=== PATIENT | female | born 1950 | race Caucasian/White ===

== ENCOUNTER 2018-03-09 05:27 | Day surgery (SDC) | payer OTHER ==
[~2018-03-09] VITALS: Ht 175.3 cm; Wt 90.7 kg
--- NOTE | ~2018-03-09 | O ---
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 PROCEDURE: Excision of basal cell carcinoma of the right upper lid with frozen section, control of margins and myocutaneous flap repair of the defect. SURGEON: Andrew Patel MD SIGN MAINTENANCE: None. ANESTHESIA: MAC. COMPLICATIONS: None. INDICATIONS FOR SURGERY: This pleasant 67-year-old woman has a biopsy proven pigmented basal cell carcinoma in her right upper lid. She presents today for excision of the tumor with frozen sections and subsequent reconstruction of that defect. Informed consent was obtained to include but not limited to the potential risk for loss of vision, bleeding, infection, failure to improve the problem and the potential need for further surgery or treatment. DESCRIPTION OF PROCEDURE: The patient was taken to the operating room where 2% Xylocaine with epinephrine mixed with equal parts of 0.75% Marcaine with Wydase was administered transcutaneously to the right upper lid, the right infratemporal fossa, the right brow and the right medial canthus. The patient was subsequently prepped and draped in the usual sterile fashion. A fine tip skin marking pen was then used to outline the lesion including a considerable margin of uninvolved tissue. The incisions were then made with a Belia scissor and the deeper dissection accomplished with a high-temp cautery. The specimen was then oriented on a drawing for the waiting pathologist. She snap froze that tissue and found that the basal cell carcinoma was indeed completely confined within the specimen. Attention was then turned to repair the ensuing defect. The bed was sculpted with the monopolar cautery. The upper lid crease was reformed with interrupted 6-0 chromic sutures. The skin was then closed addressing the flap with multiple 6-0 plain gut sutures. The wound was then cleaned and dressed with erythromycin ophthalmic ointment. The patient subsequently transported to the recovery area [address] [address] OPERATIVE REPORT Name: PURA SIFUENTES [facility] Room #: DEP [facility]..#: [id number] Admission: 03/09/18 Attend Phys: Andrew Patel MD Discharge: 03/09/18 Date of : 50 Report #: [id number] having tolerated the procedures well with no anesthetic or operative complications being noted. <ELECTRONICALLY SIGNED> By: Andrew Patel MD 03/13/18 0619 0903 0932 Andrew Patel MD /nt
--- NOTE | ~2018-03-09 | PATH ---
[facility] [address] [place] [address] PATHOLOGY RPT PROCEDURE Name: PURA SIFUENTES Room #: DEP [facility] [place] M.R.#: [id number] Admission: 03/09/18 Date of : 50 Discharge: 03/09/18 Report #: [id number] Path Case #: [id number] LCA Accession Number: [id number] . 01 Material submitted: . BASAL CELL CARCINOMA, RIGHT UPPER LID . 01 Clinical history: . Pigmented basal cell carcinoma right upper eyelid . 02 Diagnosis: Skin, right upper eyelid, excision: - BASAL CELL CARCINOMA, PIGMENTED. - MARGINS OF RESECTION FREE OF MALIGNANCY. (IUV/db; 03/10/18) LBQ/03/10/2018 . 02 Electronically signed: . Kavita Zhang MD, Pathologist NPI- [id number] . 01 Gross description: . Specimen is received fresh from the OR labeled with the patient's name, and "basal cell carcinoma right upper eyelid", consists of a thin ellipse of skin measuring 4.2 x 1 x 0.3 cm. The specimen is oriented as lateral, superior, medial and inferior; these are assigned 12:00, 3:00, 6:00, and 9:00, respectively. There is a pigmented lesion present towards the medial aspect of the specimen. This lesion grossly appears about 1 mm away from both the superior and inferior closest margins grossly. The specimen is inked as follows: 12 to 3:00 to 6:00 is inked black, 6 to 9:00 is inked blue, and 9 to 12:00 is inked green. At this point, the specimen is serially sectioned and the lesion, as well as tips are submitted for frozen section as FSA1, subsequently submitted for permanent sections as A1. The three pieces not submitted for frozen section (with no gross evidence of lesion) are submitted for permanent sections only as A2. (IUV:demi; 03/09/2018) . FROZEN SECTION DIAGNOSIS: (Kavita Zhang M.D.) . FSA1. Right upper eyelid, excision: - Pigmented basal cell carcinoma. - Margins free of invasive carcinoma. . These findings are discussed with Dr. Andrew Patel in OR-6 at [facility] and a written report is placed in the patient's chart. (IUV:demi; 03/09/2018) [address] [address] PATHOLOGY RPT PROCEDURE Name: PURA SIFUENTES Room #: DEP [facility] [place] Laci#: [id number] Admission: 03/09/18 Date of : 50 Discharge: 03/09/18 Report #: [id number] Path Case #: [id number] . Frozen section performed at [facility], [address] [place] [address] , [place] [address]. /QMS . 02 Pathologist provided ICD-10: C44.1121 . 02 CPT . 190359, [id number] Specimen Comment: A courtesy copy of this report has been sent to Specimen Comment: [phone], . Specimen Comment: Report sent to / DR RIVERA Specimen Comment: A duplicate report has been generated due to demographic updates. Performed at: [id number] [facility] [address], [place] [id number] MD Kike Bryan MD Phone: [phone] Performed at: [address], [place], [place] [id number] MD Kavita Zhang MD Phone: [phone]
[~2018-03-09 05:27] MED LIST: EFFEXOR XR75 MG PO; ESTRADIOL 1 MG T1 M1 PO; GYNODIOL0.5 MG PO; VENLAFAXIN75 MG/1 T2 PO
[2018-03-09 08:00] VITALS: BP 136/81
== END 2018-03-09 09:35 | disposition home or self-care (01) ==
LOC: OR 05:27 → TBA 05:27 → OR 09:35
DX: C44.1121 Basal cell carcinoma of skin of right upper eyelid, including canthus (principal); F32.9 Major depressive disorder, single episode, unspecified; G47.33 Obstructive sleep apnea (adult) (pediatric); Z87.891 Personal history of nicotine dependence; Z85.828 Personal history of other malignant neoplasm of skin; Z90.710 Acquired absence of both cervix and uterus; Z98.890 Other specified postprocedural states; Z79.899 Other long term (current) drug therapy
CPT/HCPCS: 50010; 50101; 50386; 50398; 51636; 56531; 62110; 62850; 70005

== ENCOUNTER 2018-05-30 14:21 | Emergency (ER) | payer OTHER ==
[~2018-05-30] VITALS: Ht 172.7 cm; Wt 90.7 kg
[2018-05-30 14:48] LABS: ABSOLUTE NEUTROPHILS 3.2 thou/uL (1.4-8.2); BASOPHILS 0.8 % (0.0-2.0); EOSINOPHILS 0.1 % (0.0-3.0); HEMATOCRIT 42.6 % (37.0-47.0); HEMOGLOBIN 14.8 gm/dL (12.0-15.0); LYMPHOCYTES 32.9 % (24.0-44.0); MCH 29.8 pg (26.0-34.0); MCHC 34.8 g/dL (28.0-37.0); MCV 85.8 fL (80.0-100.0); MONOCYTES 9.4 % (1.0-8.0); PLATELET COUNT 183 thou/uL (150-400); POLYS 56.8 % (36.0-66.0); RBC 4.97 mil/uL (4.20-5.00); RDW 13.7 % (10.5-14.5); WBC 5.7 thou/uL (4.0-11.0)
[2018-05-30 14:55] LABS: ANION GAP 12 mmol/L (7-16); BUN 15 mg/dL (7-18); CALCIUM 9.6 mg/dL (8.5-10.1); CHLORIDE 102 mmol/L (98-107); CO2 25 mmol/L (21-32); CREATININE 0.9 mg/dL (0.6-1.0); GLUCOSE 112 mg/dL (74-106); SODIUM 139 mmol/L (136-145)
[2018-05-30 15:03] LABS: MAGNESIUM 2.1 mg/dL (1.8-2.4); SGOT 20 U/L (15-37); SGPT 28 U/L (30-65); TOTAL BILIRUBIN 0.4 mg/dL (<0.1-1.0); TROPONIN-I <0.06 ng/mL (<0.06)
[2018-05-30 15:52] LABS: AMP/METHAMP Negative (Negative); BARBITURATES Negative (Negative); BENZODIAZEPINES Negative (Negative); COCAINE Negative (Negative); METHADONE Negative (Negative); OPIATES Negative (Negative); PCP Negative (Negative)
[2018-05-30] MEDS ORDERED: [UNRECOGNIZED DRUG - REMARK] (16:11)
[2018-05-30] MEDS ORDERED: TOPROL XL25 MG PO (16:27)
--- NOTE | 2018-05-30 17:04 | EKG ---
[place] [address] 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 : 1950 Requested By: Neto Cam Order Number: [id number] MD: Juan Manuel Rodríguez Measurements Intervals [place] Rate: 95 P: 77 [place]: 145 QRS: 61 QRSD: 105 T: 61 QT: 361 QTc: 454 Interpretive Statements Sinus rhythm Probable left atrial enlargement Minimal ST depression, diffuse leads Compared to ECG 11/20/2014 17:39:42 No significant changes Electronically Signed On 05-30-2018 17:04:39 THREE DIMENSIONAL ART INSTRUCTOR by Juan Manuel oRdríguez [email or web address] ��������������������������������������������� <ELECTRONICALLY SIGNED> ���������������������������������������� By: Juan Manuel Rodríguez MD ��������������������������������������������� 05/30/18 1704 D: 02/1442 144 Juan Manuel Rodríguez MD /MARY ANN
--- NOTE | 2018-05-30 17:04 | EKG ---
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 : 1950 Requested By: Neto Cam Order Number: [id number] MD: Juan Manuel Rodríguez Measurements Intervals [place] Rate: 174 P: [place]: QRS: 69 QRSD: 99 T: 245 QT: 255 QTc: 434 Interpretive Statements SVT Electronically Signed On 05-30-2018 17:04:18 HANGAR ATTENDANT by Juan Manuel Rodríguez [email or web address] ��������������������������������������������� <ELECTRONICALLY SIGNED> ���������������������������������������� By: Juan Manuel oRdríguez MD ��������������������������������������������� 05/30/18 1704 1427 1427 Juan Manuel Rodríguez MD /EPI
[2018-05-30 17:40] VITALS: BP 145/96
== END 2018-05-30 17:40 | disposition home or self-care (01) ==
LOC: ER 14:21
PROVIDERS: Emergency Medicine
DX: I48.2 Chronic atrial fibrillation (principal); F32.9 Major depressive disorder, single episode, unspecified; G47.30 Sleep apnea, unspecified; E78.5 Hyperlipidemia, unspecified; Z90.710 Acquired absence of both cervix and uterus; Z85.828 Personal history of other malignant neoplasm of skin; Z79.899 Other long term (current) drug therapy

== ENCOUNTER → 2018-05-31 | Outpatient (CLI) | payer OTHER ==
[~2018-05-31] MED LIST changes: +TOPROL XL25 MG PO; +[UNRECOGNIZED DRUG - REMARK]
--- NOTE | 2018-05-31 14:15 | 2DMMODE ---
[facility] [address] [place] [address] 2 D/M-MODE ECHOCARDIOGRAM Name: PURA SIFUENTES ARNULFO [facility]: [facility] [id number] ������������� Admission: 05/31/18 ������������� Attend Phys: Christiano Parish Discharge: ��� ������������� ��� Date of : 50 Date of Service: 05/31/18 1415 �� Report #: [id number] �������� ��������������������������������������������[id number] THIS REPORT FOR: //name// APPROVED REPORT Study performed: 05/31/2018 13:22:38 EXAM: Comprehensive 2D, Doppler, and color-flow Echocardiogram Patient Location: Out-Patient Room #: Echo lab 2 Status: routine BSA: 2.04 HR: 62 bpm BP: 144/86 mmHg Rhythm: NSR Other Information Study Quality: Adequate Indications Abnormal ECG Chest Pain SVT 2D Dimensions RVDd: 32.56 mm IVSd: 9.02 (7-11mm) LVOT Diam: 20.76 (18-24mm) LVDd: 50.85 mm PWd: 10.46 (7-11mm) Ascending Ao: 31.49 (22-36mm) LVDs: 30.48 (25-40mm) Aortic Root: 30.66 mm IVC: 12.00 mm Volumes Left Atrial Volume (Systole) Single Plane 4CH: 29.05 mL Single Plane 2CH: 38.87 mL LA ESV Index: 19.00 mL/m2 Aortic Valve AoV Peak Declan.: 1.04 m/s AO Peak Gr.: 4.31 mmHg LVOT Max P.39 mmHg LVOT Max V: 0.77 m/s POORNIMA Vmax: 2.52 cm2 Mitral Valve E/A Ratio: 0.8 [facility] [address] [address] 2 D/M-MODE ECHOCARDIOGRAM Name: PURA SIFUENTES Room #: REG Laci#: [id number] ������������� Admission: 05/31/18 ������������� Attend Phys: Christiano Parish Discharge: ��� ������������� ��� Date of : 50 Date of Service: 05/31/18 1415 �� Report #: [id number] �������� ��������������������������������������������[id number] MV Decel. Time: 209.27 ms MV E Max Declan.: 0.81 m/s MV A Declan.: 0.99 m/s MV PHT: 60.69 ms IVRT: 138.41 ms Pulmonary Valve PV Peak Declan.: 0.85 m/s PV Peak Gr.: 2.90 mmHg Pulmonary Vein P Vein S: 0.53 m/s P Vein A: 0.31 m/s P Vein D: 0.44 m/s P Vein A Dur.: 115.3 msec P Vein S/D Ratio: 1.20 Tricuspid Valve TR Peak Declan.: 2.40 m/s TR Peak Gr.: 23.02 mmHg PA Pressure: 28.00 mmHg Left Ventricle The left ventricle is normal size. There is normal LV segmental wall motion. There is normal left ventricular wall thickness. Left ventricular systolic function is normal. The left ventricular ejection fraction is within the normal range. LVEF is 55-60%. Grade I - abnormal relaxation pattern. Right Ventricle The right ventricle is normal size. The right ventricular systolic function is normal. Atria The left atrium size is normal. The right atrium size is normal. Aortic Valve The aortic valve is normal in structure. No aortic regurgitation is present. There is no aortic valvular stenosis. Mitral Valve The mitral valve is normal in structure. There is no mitral valve regurgitation noted. No evidence of mitral valve stenosis. Tricuspid Valve The tricuspid valve is normal in structure. There is trace tricuspid regurgitation. Estimated PAP 28 mmHg. There is no pulmonary hypertension. [address] [address] 2 D/M-MODE ECHOCARDIOGRAM Name: PURA SIFUENTES ARNULFO Room #: REG [facility] Aguero#: [id number] ������������� Admission: 05/31/18 ������������� Attend Phys: Christiano Parish Discharge: ��� ������������� ��� Date of : 50 Date of Service: 05/31/18 1415 �� Report #: [id number] �������� ��������������������������������������������[id number] Pulmonic Valve The pulmonary valve is normal in structure. There is no pulmonic valvular regurgitation. Great Vessels The aortic root is normal in size. IVC is normal in size and collapses >50% with inspiration. Pericardium There is no pericardial effusion. <Conclusion> The left ventricle is normal size. LVEF is 55-60%. The aortic valve is normal in structure. The mitral valve is normal in structure. The tricuspid valve is normal in structure. There is trace tricuspid regurgitation. Estimated PAP 28 mmHg. There is no pulmonary hypertension. The pulmonary valve is normal in structure. The aortic root is normal in size. There is no pericardial effusion. ��������������������������������������������� <ELECTRONICALLY SIGNED> ���������������������������������������� By: Christiano Martin MD ��������������������������������������������� 05/31/18 1415 1415 1415 Christiano Martin MD /INF
== END ==
LOC: CV 12:52
DX: I10 Essential (primary) hypertension (principal); I47.1 Supraventricular tachycardia

== ENCOUNTER 2018-06-05 10:52 | Inpatient (IN) | payer OTHER ==
[~2018-06-05] VITALS: Ht 172.7 cm; Wt 87.5 kg
[2018-06-05 10:53] VITALS: BP 147/99
[2018-06-05] MEDS ORDERED: TOPROL XL25 MG PO (11:02)
[2018-06-05] MEDS ORDERED: PRADAXA150 MG PO (11:03)
[2018-06-05 11:34] LABS: ABSOLUTE NEUTROPHILS 2.7 thou/uL (1.4-8.2); HEMATOCRIT 40.1 % (37.0-47.0); HEMOGLOBIN 13.9 gm/dL (12.0-15.0); LYMPHOCYTES 24.2 % (24.0-44.0); MCH 29.7 pg (26.0-34.0); MCHC 34.6 g/dL (28.0-37.0); MCV 85.7 fL (80.0-100.0); MONOCYTES 7.4 % (1.0-8.0); PLATELET COUNT 178 thou/uL (150-400); POLYS 67.4 % (36.0-66.0); RBC 4.68 mil/uL (4.20-5.00); RDW 13.7 % (10.5-14.5); WBC 4.1 thou/uL (4.0-11.0)
[2018-06-05 11:37] LABS: ANION GAP 11 mmol/L (7-16); BUN 18 mg/dL (7-18); CALCIUM 9.2 mg/dL (8.5-10.1); CHLORIDE 104 mmol/L (98-107); CO2 23 mmol/L (21-32); CREATININE 0.8 mg/dL (0.6-1.0); GLUCOSE 115 mg/dL (74-106); POTASSIUM 4.4 mmol/L (3.5-5.1); SODIUM 138 mmol/L (136-145)
[2018-06-05 11:45] LABS: TROPONIN-I <0.06 ng/mL (<0.06)
--- NOTE | 2018-06-05 14:17 | NUR ---
PROVIDER AT BEDSIDE GIVING PT AN UPDATE.
[2018-06-05] MEDS ORDERED: D3 DOTS2000 UNIT PO (14:53)
--- NOTE | 2018-06-05 15:02 | EKG ---
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 : 1950 Requested By: Christina Joseph Order Number: [id number] MD: Juan Manuel Rodríguez Measurements Intervals [place] Rate: 56 P: 73 [place]: 147 QRS: 56 QRSD: 108 T: 60 QT: 448 QTc: 433 Interpretive Statements Sinus rhythm Compared to ECG 05/30/2018 14:43:03 ST (T wave) deviation no longer present Electronically Signed On 06-05-2018 15:02:35 DEMOLITION SPECIALIST by Juan Manuel Rodríguez [email or web address] ��������������������������������������������� <ELECTRONICALLY SIGNED> ���������������������������������������� By: Juan Manuel Rodríguez MD ��������������������������������������������� 06/05/18 1502 1056 1056 Juan Manuel Rodríguez MD /MARY ANN
[2018-06-05 15:28] VITALS: BP 126/62
[2018-06-05 16:30] VITALS: BP 160/83
[2018-06-05] MEDS ORDERED: FOSAMAX 70 MG T70 MG PO (17:14)
--- NOTE | 2018-06-05 17:50 | NUR ---
PT ARRIVED TO THE UNIT AT APPROX 1625 BY ER STAFF WITH BELONGINGS AND MEDICATIONS. PT ALERT AND ORIENTED, C/O 2/10 CP, NO S/SX OF RESP OR CARDIAC DISTRESS NOTED. PT UP AD IRENA, TELE PUT ON, ADMIT STRIP PRINTED AND DOCUMENTED. MEDICATIONS BROUGHT DOWN TO PHARMACY. WILL ACKNOWLEDGE AND IMPLEMENT ORDERS. WILL CONTINUE TO MONITOR AND FOLLOW POC.
--- NOTE | 2018-06-05 18:25 | NUR ---
PT CONTINUES TO BE ALERT AND ORIENTED, CHEST PAIN CONSTANT DULL, RATING AT 2/10. PT UP ADLIB, DENIES CONCERNS AT THIS TIME. WILL CONTINUE TO MONITOR AND FOLLOW POC.
[2018-06-05 20:12] VITALS: BP 131/72
[2018-06-06] VITALS (7 sets, daily range): BP systolic 103–142; BP diastolic 59–91
--- NOTE | 2018-06-06 03:18 | NUR ---
ASSESSMENT DOCUMENTED.PT HAS BEEN RESTING IN NAD.A/OX4.ADMITTED WITH CHEST PAIN.PT DENIES CHEST PAIN OR ANY CONCERNS THIS SHIFT.NPO AFTER MIDNOC FOR STRESS TEST TODAY.PT AWARE AND AGREES TO POC FOR TODAY.SR ON MONITOR.VSS.PT DENIES ANY NEEDS AT THIS TIME.
[2018-06-06 04:27] LABS: HEMATOCRIT 41.3 % (37.0-47.0); HEMOGLOBIN 14.2 gm/dL (12.0-15.0); MCH 29.7 pg (26.0-34.0); MCHC 34.5 g/dL (28.0-37.0); MCV 86.3 fL (80.0-100.0); RBC 4.79 mil/uL (4.20-5.00); RDW 13.7 % (10.5-14.5); WBC 4.1 thou/uL (4.0-11.0)
[2018-06-06 04:38] LABS: ANION GAP 11 mmol/L (7-16); BUN 19 mg/dL (7-18); CALCIUM 9.5 mg/dL (8.5-10.1); CHLORIDE 104 mmol/L (98-107); CO2 26 mmol/L (21-32); CREATININE 0.9 mg/dL (0.6-1.0); GLUCOSE 111 mg/dL (74-106); POTASSIUM 4.2 mmol/L (3.5-5.1); SODIUM 141 mmol/L (136-145); TROPONIN-I <0.06 ng/mL (<0.06)
--- NOTE | 2018-06-06 05:08 | NUR ---
PT REPORTED SUDDEN CRUSHING PAIN TO LEFT CHEST OVER BREAST RATING PAIN HIGH 10/10 THAT LAST FOR LESS THAN 2MINUTES AND DISAPPEAR W/O INTERVENTIONS.THE FIRST EPISODE PT WAS LAYING IN THE BED RESTING WHILE IT OCCURED W/O NO OTHER COMPLAINS,THE SECOND EPISODE OCCURED WHILE SHE WAS ON THE PHONE WITH THE SON,PT STATES SECOND EPISODE WAS TOO SEVERE ACCOMPANIED BY BEING DIAPHORETIC.VSS WNL,O2 SATS 98%.PT DENIES SOA WITH THESE EPISODES.EKG COMPLETED.DR CLIFFORD NOTIFIED,INSTRUCTED TO CONTINUE WITH EKG,DRAW TROPONIN.PT SCHEDULED FOR STRESS TEST THIS AM.WILL CONT TO MONITOR PER POC.
--- NOTE | 2018-06-06 08:13 | EKG ---
[address] [address] ELECTROCARDIOGRAM REPORT Name: BEARPURA Room #: 210-P ADM IN M.R.#: [id number] ������������������ Admission: 06/05/18 ������������������ Attend Phys: Julio Cesar Collazo MD Discharge: ������������������ Date of : 50 Report #: [id number] ����������������������������������������������������������������� [id number] THIS REPORT FOR: //name// [facility] Test Date: 2018-06-06 Test Time: 05:00:44 Pat Name: PURA SIFUENTES Department: Room: 210 P Gender: F Regional Account Executive: melissa : 1950 Requested By: Raheem Francisco Order Number: [id number] MD: Jah Nicholson Measurements Intervals [place] Rate: 59 P: 87 [place]: 153 QRS: 56 QRSD: 103 T: 81 QT: 462 QTc: 458 Interpretive Statements Sinus rhythm No significant abnormality Compared to ECG 06/05/2018 10:56:24 No significant changes Electronically Signed On 06-06-2018 8:13:13 CONCESSION STAND ATTENDANT by Jah Nicholson [email or web address] ��������������������������������������������� <ELECTRONICALLY SIGNED> ���������������������������������������� By: Jah Nicholson MD, [facility] ��������������������������������������������� 06/06/18 0813 D: 030 Jah Nicholson MD, FACC /EPI
--- NOTE | 2018-06-06 18:36 | NUR ---
ASSUMED CARE OF PT AT SHIFT CHANGE. ASSESSMENT CHARTED. MEDS GIVEN PER JUN. PT ALERT AND ORIENTED, VSS, C/O CHEST PAIN THIS AM, EKG, TROP NEGATIVE, BP ELEVATED, CARDS NOTIFIED, NO NEW ORDERS. CHEST PAIN RESOLVED WITHIN MINUTES, NO FURTHER C/O CHEST PAIN. PT HAD STRESS TEST THIS AM. PHYSICIAN SPOKE WITH PT AFTER PROCEDURE, PLAN IS FOR PT TO HAVE CATH IN AM. PT AND FAMILY UPDATED. O2 SATS WNL ON ROOM AIR, NO S/SX OF DISTRESS NOTED. DENIES CONCERNS AT THIS TIME. WILL CONTINUE TO MONITOR AND FOLLOW POC.
[2018-06-07] VITALS (12 sets, daily range): BP systolic 123–163; BP diastolic 60–108
--- NOTE | 2018-06-07 05:27 | NUR ---
ASSUMED PT CARE AT 1900. VSS. PT A&0X4. ASSESSMENTS AND MEDS GIVEN ARE DOCUMENTED, PT RESTED WELL FOR MOST OF THE NIGHT. PRE PROCEDURE NS WAS STARTED AT MIDNIGHT AT 91ML/HR PER ORDER OF 1ML/KG/HR. PT STATED THAT HER CHEST PAIN CAME BACK AROUND 0430 THIS AM AND ONLY LASTED ONLY A FEW MINUTES AFTER WHICH IT SELF RESOLVED. OTHERWISE, NO FURTHER COMPLAINTS FROM PATIENT THROUGH THE NIGHT, CONSENT ALREADY SIGNED FOR CATH PROCEDURE THIS AFTERNOON AND IN THE CHART. WILL CONTINUE TO MONITOR PER POC.
[2018-06-07 08:46] LABS: CHOLESTEROL 231 mg/dL (<200); HDL CHOLESTEROL 48 mg/dL (>40); LDL CHOLESTEROL 152 mg/dL (<100); TC:HDL 4.8 Ratio (Not establshd); TRIGLYCERIDE 158 mg/dL (<150); VLDL 32 mg/dL (<40)
--- NOTE | 2018-06-07 17:39 | NUR ---
PATIENT ALERT AND ORIENTED. VSS. DENIED HAVING PAIN OR DISCOMFORT THIS AM. HAD CARDIAC CATH. RIGHT GROIN INCISION C/D/I. NO HEMATOMA NOTED. ON BED REST FOR 3HOURS. WILL CONTINUE TO MONITOR.
[2018-06-08] VITALS: BP 123/60
--- NOTE | 2018-06-08 03:56 | NUR ---
AT SHIFT CHANGE; PT AOX4; ON BED REST UNTIL 1999 PM; DRESSING DRY; INTACT; NO HEMATOMA; NO C/O PAIN AT TOUCH; VS WNL; HS MEDICATION GIVEN; EXPLAINED HOW ASSESSMENT ARE PERFORMED Q4H DURING THE NIGHT; ST. UNDERSTANDING; AROUND 2330 PT. CALLED FOR IV PUMP BEEPING; IV FLUIDS STOPPED; IV FLUSHED; R. GROING ASSESSMENT DRY; INTACT; NO HEMATOMA; NO C/O PAIN; PULSES 2/2; AROUND MIDNIGHT PT. CALLED DUE TO IV PUMP BEEPING; PER NURSE REPORT (KEV); PT. UPSET DUE TO PUMP BEEPING; REQUESTED IV PUMP TO BE TAKEN OUT FROM ROOM; DURING NURSE RE-ASSESSMENT PT. UPSET BECAUSE IV PUMP WAS NOT TAKEN OUT FROM ROOM; EXPLAINED THE NEED TO KEEP IV PUMPS IN ROOM; PT. TURN ON HER L. SIDE; PT'S BACK TOWARD NURSE; ST. "OK"; NURSE LEFT ROOM; VS AND 0400 ASSESSMENT WILL BE TAKEN TOGETHER; ASSESSMENT CHARGE; FOLLOWING POC; WILL PASS ON REPORT.
[2018-06-08 04:35] VITALS: BP 115/68
[2018-06-08] MEDS ORDERED: IMDUR 30 MG TAB30 M1 PO (07:41)
[2018-06-08] MEDS ORDERED: ATORVASTATIN CA40 MG PO (08:05)
[2018-06-08 08:07] VITALS: BP 142/83
[2018-06-08 10:54] VITALS: BP 142/83
--- NOTE | 2018-06-08 12:27 | NUR ---
ASSESSMENT DOCUMENTED. PT ALERT AND ORIENTED. VSS. DENIED HAVING PAIN OR DUSCOMFORT. NO HEMATOMA NOTED ON RIGHT GROIN INCISION. DRESSING C/D/I. SEEN BY DR MCKEON AND DR. CLIFFORD. ORDERS GIVEN TO DISCHARGE PT TO HOME. DISCHARGE INSTRUCTIONS GIVEN TO PT. PT VERBERLIZE UNDERSTANDING. PT LEFT THE FACILITY ACCOMPANIED BY THE DAUGHTER.
--- NOTE | 2018-06-09 17:58 | CATHLAB ---
[facility] [address] [email or web address] [address] INVASIVE PROCEDURE REPORT Name: PURA SIFUENTES Room #: 210-P DIS IN M.R.#: [id number] ������������� Admission: 06/05/18 ������������� Attend Phys: Julio Cesar Collazo MD Discharge: ��� 06/08/18 ������������� ��� Date of : 50 Date of Service: 06/09/18 1757 �� Report #: [id number] �������� ��������������������������������������������[id number] THIS REPORT FOR: //name// APPROVED REPORT Study performed: 06/07/2018 16:06:14 Patient Details Patient Status: In-Patient Room #: The patient is a 67 year-old female Event Personnel Tarah Khoury RTR, FRONT END WEB DESIGNER Monitor, Magno Barton RN, Ragini Shankar RT(R)() Mario Cruz Francisco Bilingual Teacher Aide Procedures Performed Art Access - R femoral artery* Left Heart Cath w/or w/o Coronaries [id number] [facility] [address] Initial Mod Sed Same Phys/QHP Gr5y [id number] Hemostasis with Manual pressure, supervision of conscious sedation Indication Positive stress test, Chest pain Procedure Narrative The Right Groin^ was infiltrated with 1% Lidocaine subcutaneous anesthesia. A PINNACLE 4FR Sheath #[id number] sheath was inserted into the RFA^. Coronary angiography was performed using coronary diagnostic catheters. The right coronary system was accessed and visualized with a JR4 catheter. The left coronary system was accessed and visualized with a JL4 catheter. Left ventricular/Aortic Valve gradient assessed via catheter pullback. Hemostasis was obtained with manual pressure following sheath removal without any complications. The patient tolerated the procedure well and there were no complications associated with the procedure. There was no hematoma. Intraoperative Conscious Sedation Sedation start time: 1604 Case end Time: 1628 Versed 2 mg Fluoro Time: 1.50 minutes Dose: DAP 2730.10 cGycm2 414 mGy [facility] [place] [address] INVASIVE PROCEDURE REPORT Name: PURA SIFUENTES [facility] Room #: 210-P [facility] IN M..#: [id number] ������������� Admission: 06/05/18 ������������� Attend Phys: Julio Cesar Collazo MD Discharge: ��� 06/08/18 ������������� ��� Date of : 50 Date of Service: 06/09/18 1757 �� Report #: [id number] �������� ��������������������������������������������[id number] Contrast Type and Amount: Omnipaque 35 ml Coronary Angiography The patient's coronary anatomy is right dominant. Diagnostic Cath Left Main Normal origin and caliber bifurcates left anterior descending left circumflex. Free of high-grade disease. LAD Small caliber type II vessel which proximally has a concentric narrowing of approximately 50% which begins almost at its origin. The origin of this vessel is curved the lesion being at the main midpoint of the bend in the vessel itself.. The vessel then continues on reconstitutes itself courses in the anterior interventricular sulcus giving rise to septal and diagonal branches free of high-grade disease. Diagonal 1 Small-caliber Vessel without significant high-grade lesions present Circumflex Large-caliber vessel coursing in the feet groove a short distance and arising a large lateral wall marginal branch. This is a terminus of the circumflex as it was on the lateral aspect of the left ventricle free of significant stenotic lesions. OM1 First marginal branches the primary vessel and the left circumflex. It is free of significant stenotic lesions as described above Right Coronary Caliber vessel normal origin which courses in the AV groove giving rise to 2 RV marginal branches. These are small in caliber and free of high-grade disease. The RCA proper then continues to the crux of the heart regular circumflex posterior descending artery which is moderate in size tortuous in its course towards the apex but no significant high-grade lesions are noted. The circulation consists of posterior wall branches without decrease flow R PDA Moderate caliber vessel without significant high-grade stenosis noted. It is tortuous in its course in the posterior interventricular sulcus as it extends towards the apex. Ramus Small-caliber vessel arising from the left main or proximal circumflex. It is free of high-grade disease and measures less than 1 mm in diameter. Left Ventriculography Left Ventriculography was not performed. Hemodynamics The aortic pressure is 136/70 mmHg with a mean of 95 mmHg. The left ventricular pressure is 154/10 mmHg with a mean of mmHg. The left ventricular end diastolic pressure is 29 mmHg. [facility] [address] [place] [address] INVASIVE PROCEDURE REPORT Name: PURA SIFUENTES Room #: 210-P [facility] IN M.R.#: [id number] ������������� Admission: 06/05/18 ������������� Attend Phys: Julio Cesar Collazo MD Discharge: ��� 06/08/18 ������������� ��� Date of : 50 Date of Service: 03/11/20 1756 �� Report #: [id number] �������� ��������������������������������������������[id number] Conclusion 1. Coronary disease, moderate, single vessel consisting of the proximal LAD. 2. Normal hemodynamics with elevated left ventricular end-diastolic pressures Recommendations Cardiac Risk Reduction Program Medical Therapy ��������������������������������������������� <ELECTRONICALLY SIGNED> ���������������������������������������� By: Christiano Martin MD ��������������������������������������������� 06/09/181756 56 56 Christiano Martin MD /INF
== END 2018-06-08 12:30 | disposition home or self-care (01) | DRG 286 ==
LOC: ER 10:52 → EROBS 14:22 → 2N 14:22 → ENTRNSPT 06-08 11:26 → EDTRNSPTSTS 06-08 11:39 → 2N 06-08 12:30
PROVIDERS: Emergency Medicine; Nurse Practitioner Gerontology; ADMIT Hospitalist
DX: I25.110 Atherosclerotic heart disease of native coronary artery with unstable angina pectoris (principal); I50.33 Acute on chronic diastolic (congestive) heart failure; F32.9 Major depressive disorder, single episode, unspecified; G47.33 Obstructive sleep apnea (adult) (pediatric); I48.91 Unspecified atrial fibrillation; E03.9 Hypothyroidism, unspecified; I10 Essential (primary) hypertension; Z79.82 Long term (current) use of aspirin; Z79.899 Other long term (current) drug therapy; Z90.710 Acquired absence of both cervix and uterus; Z87.891 Personal history of nicotine dependence
CPT/HCPCS: 10081

== ENCOUNTER → 2018-07-24 | Outpatient (CLI) | payer OTHER ==
[~2018-07-24] VITALS: Ht 172.7 cm; Wt 86.2 kg
[~2018-07-24] MED LIST changes: +ATORVASTATIN CA40 MG PO; +COZAAR 25 MG TA25 M2 PO; +D3 DOTS2000 UNIT PO; +FOSAMAX 70 MG T70 MG PO; +IMDUR 30 MG TAB30 M1 PO; +IMDUR 60 MG TAB60 M1 PO; +PRADAXA150 MG PO
[2018-07-24 07:23] LABS: ABSOLUTE NEUTROPHILS 3.2 thou/uL (1.4-8.2); BASOPHILS 0.7 % (0.0-2.0); EOSINOPHILS 0.1 % (0.0-3.0); HEMATOCRIT 38.5 % (37.0-47.0); HEMOGLOBIN 13.1 gm/dL (12.0-15.0); LYMPHOCYTES 26.6 % (24.0-44.0); MCH 29.7 pg (26.0-34.0); MCV 87.4 fL (80.0-100.0); MONOCYTES 9.2 % (1.0-8.0); PLATELET COUNT 202 thou/uL (150-400); POLYS 63.4 % (36.0-66.0); RBC 4.41 mil/uL (4.20-5.00); RDW 14.3 % (10.5-14.5); WBC 5.1 thou/uL (4.0-11.0)
[2018-07-24 07:28] LABS: CALCIUM 9.2 mg/dL (8.5-10.1); CREATININE 0.9 mg/dL (0.6-1.0)
[2018-07-24 07:34] LABS: ALBUMIN 3.9 g/dL (3.4-5.0); APTT 27.1 Seconds (24.5-32.8); PROTIME 10.3 Seconds (9.3-11.4); TOTAL BILIRUBIN 0.5 mg/dL (<0.1-1.0); TOTAL PROTEIN 7.4 g/dL (6.4-8.2)
[2018-07-24 07:35] VITALS: BP 106/58
--- NOTE | 2018-07-31 14:33 | P ---
[facility] [place] [address] [place] [address] PROCEDURE REPORT Name: BEARPURA ANN Room #: REG AMEYA Laci#: [id number] Admission: 07/24/18 ������������������ Attend Phys: Juan Manuel Rodríguez MD Discharge: ������������������ Date of : 50 Report #: [id number] THIS REPORT FOR: //name// CC: Katy Alvarado Lammoglia Juan Manuel Rodríguez PREOPERATIVE DIAGNOSIS: Supraventricular tachycardia. 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 PROCEDURES PERFORMED: 1. SVT ablation, CPT code 84038. 2. EP with left atrial pacing and recording, CPT code 30551. 3. Programmed stimulation and pacing after IV drug infusion, CPT code 59864. 4. 3D mapping, CPT code 61588. HISTORY: The patient is a 67-year-old recently in the Emergency Room with SVT that was adenosine sensitive. 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 ANESTHESIA: The patient underwent MAC anesthesia with no anesthesia related complications. DESCRIPTION OF PROCEDURE: The patient underwent informed consent. We discussed the details of the procedure, which include but not limited to bleeding, vascular damage, stroke, VT as well as damage to the [place] conduction system requiring permanent pacemaker. She understood these risks and is willing to proceed. Of note, she does report that she inadvertently took her usual dose of beta onel yesterday. She forgot to hold this as we had directed. As such, the patient was brought to the EP laboratory in a fasting and unsedated state and prepped and draped in a sterile fashion. I then injected lidocaine to the bilateral groins, obtained access to the bilateral femoral veins placing an 8 and 6-Nepalese short sheath in the right femoral vein and a 7 and 6-Nepalese short sheath in the left femoral vein using the modified Seldinger technique. Next, under fluoroscopy, three quadripolar catheters were placed at the HRA, His, and RV positions and a decapolar catheter was easily placed in the coronary sinus. A basic EP study was performed. At baseline, the patient was in sinus rhythm with sinus cycle length of 1075 milliseconds, [place] interval 165 milliseconds, QRS duration 90 milliseconds, QT interval 435 milliseconds, AH interval 75 milliseconds and HV interval 47 milliseconds. With atrial burst pacing, AV block was noted at 360 milliseconds. With single atrial extrastimuli, there was evidence of a slow pathway. The fast pathway ERP was noted at 380 milliseconds with a [address] cycle length with a 100 millisecond jump. [facility] [address] [place] [place] [address] PROCEDURE REPORT Name: PURA SIFUENTES Room #: REG [facility]#: [id number] Admission: 07/24/18 ������������������ Attend Phys: Juan Manuel Rodríguez MD Discharge: ������������������ Date of : 50 Report #: [id number] Next atrial extrastimuli were continued and atrial ERP was noted at 310 milliseconds with [address] cycle length. Next, ventricular pacing was performed and VA block was noted at 620 milliseconds, VA ERP was noted at 450 milliseconds at [address] cycle length. VA conduction was both midline and decremental. Next, isoproterenol was initiated at 2 mcg per minute and AV block was noted at 300 milliseconds, VA block was noted at 330 milliseconds. Single and double atrial extrastimuli were delivered and no SVT could be induced. There was still evidence of the presence of the slow pathway. Isoproterenol was increased to 3 mcg per minute and I think due to her being on her beta blockers, we were not getting a robust increase in the heart rate. Her atrial rate was still around 90 beats per minute. Next, isoproterenol infusion was increased to 6 mcg per minute. AV block was noted at 270 milliseconds. Single and double atrial extrastimuli were delivered and no SVT could be induced. VA block was noted at 300 milliseconds and VERP was noted at 200 milliseconds at [address] cycle length. Based on the documented SVT that looks like AVNRT and the evidence of a slow pathway, I decided to proceed with ablation of her slow pathway. 3D MAPPING AND ABLATION: Next, I placed a 4 mm ablation catheter via an SR0 sheath into the right atrium and created a detailed 3D geometry of the His bundle area of the slow pathway region and the coronary sinus ostium. Next, ablation was performed at 50 ag and 55 degrees. Multiple total of 7 lesions were performed and most of these lesions showed some slow junctionals and some of these junctionals would speed up, but come off, the last 2 cuadra resulted in nice slow junctionals at around 60 beats per minute. As such, post-ablation testing was performed. Post-ablation AV block was noted at 340 milliseconds, atrial ERP was noted at 270 milliseconds at a [address] cycle length. Isoproterenol was then reinitiated at 5 mcg per minute and AV block was noted at 250 milliseconds, atrial ERP was noted at 200 milliseconds at [address] cycle length and VA block was noted at 340 milliseconds. We tested for about 30 minutes and could not induce any SVT. As such, all catheters and sheaths were pulled. Hemostasis was obtained and the patient awoke neurologically and hemodynamically intact. No complications and no significant bleeding. Post-ablation, the patient was in sinus rhythm with sinus cycle length of 620 milliseconds, NY interval 145 milliseconds, QRS duration 95 milliseconds, QT interval 365 milliseconds, AH interval 78 milliseconds and HV interval 47 milliseconds. CONCLUSIONS: 1. 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 2. Normal SA anuradha function. 3. Normal AV anuradha function. [facility] [address] [place] [address] PROCEDURE REPORT Name: PURA SIFUENTES ARNULFO Room #: [facility].#: [id number] Admission: 07/24/18 ������������������ Attend Phys: Juan Manuel Rodríguez MD Discharge: ������������������ Date of : 50 Report #: [id number] 4. Normal His-Purkinje function. 5. No other inducible arrhythmias on or off isoproterenol. ��������������������������������������������� <ELECTRONICALLY SIGNED> ���������������������������������������� By: Juan Manuel Rodríguez MD ��������������������������������������������� 07/31/18 1433 1507 0735 Juan Manuel Rodríguez MD /nt
== END | disposition home or self-care (01) ==
LOC: CATH 06:49
PROVIDERS: Internal Medicine Cardiovascular Disease
DX: I47.1 Supraventricular tachycardia (principal); I10 Essential (primary) hypertension; E78.5 Hyperlipidemia, unspecified; F32.9 Major depressive disorder, single episode, unspecified; G47.33 Obstructive sleep apnea (adult) (pediatric); Z98.890 Other specified postprocedural states; Z90.710 Acquired absence of both cervix and uterus; Z82.49 Family history of ischemic heart disease and other diseases of the circulatory system; Z79.899 Other long term (current) drug therapy; Z87.891 Personal history of nicotine dependence; Z79.01 Long term (current) use of anticoagulants
CPT/HCPCS: 62110; 62900; 70005

== ENCOUNTER 2018-09-22 09:08 | Inpatient (IN) | payer OTHER ==
[~2018-09-22] VITALS: Ht 172.7 cm; Wt 88.9 kg
[2018-09-22] VITALS (10 sets, daily range): BP systolic 97–137; BP diastolic 49–91
[2018-09-22 09:59] LABS: HEMATOCRIT 40.6 % (37.0-47.0); HEMOGLOBIN 13.8 gm/dL (12.0-15.0); MCH 29.3 pg (26.0-34.0); MCV 86.3 fL (80.0-100.0); RBC 4.7 mil/uL (4.20-5.00); RDW 14.2 % (10.5-14.5); WBC 4.2 thou/uL (4.0-11.0)
[2018-09-22 10:06] LABS: CALCIUM 9.3 mg/dL (8.5-10.1); CREATININE 0.9 mg/dL (0.6-1.0); POTASSIUM 3.8 mmol/L (3.5-5.1)
[2018-09-22] MEDS ORDERED: METOPROLOL SUCC50 MG PO (10:27)
[2018-09-22] MEDS ORDERED: LOSARTAN POTAS100 MG PO (10:29)
[2018-09-22] MEDS ORDERED: ASPIR 8181 MG PO (10:30)
[2018-09-22] MEDS ORDERED: NITROGLYCERIN0.4 MG SUBLING (10:30)
[2018-09-22 16:16] LABS: ABSOLUTE NEUTROPHILS 2.2 thou/uL (1.4-8.2); BASOPHILS 0.5 % (0.0-2.0); EOSINOPHILS 0.1 % (0.0-3.0); HEMATOCRIT 37.4 % (37.0-47.0); HEMOGLOBIN 12.7 gm/dL (12.0-15.0); LYMPHOCYTES 26.9 % (24.0-44.0); MCH 29.5 pg (26.0-34.0); MCHC 33.9 g/dL (28.0-37.0); MCV 87.1 fL (80.0-100.0); MONOCYTES 8.1 % (1.0-8.0); PLATELET COUNT 152 thou/uL (150-400); POLYS 64.4 % (36.0-66.0); RDW 14.1 % (10.5-14.5); WBC 3.4 thou/uL (4.0-11.0)
[2018-09-22 16:24] LABS: CALCIUM 8.9 mg/dL (8.5-10.1); POTASSIUM 4.1 mmol/L (3.5-5.1)
[2018-09-22 16:30] LABS: ALBUMIN 3.4 g/dL (3.4-5.0); TOTAL BILIRUBIN 0.4 mg/dL (<0.1-1.0); TOTAL PROTEIN 6.7 g/dL (6.4-8.2)
[2018-09-22 16:31] LABS: URINE BILIRUBIN NEGATIVE (Negative); URINE BLOOD 2+ (Negative); URINE CLARITY CLEAR; URINE COLOR YELLOW; URINE GLUCOSE-RANDOM* NEGATIVE (Negative); URINE KETONES NEGATIVE (Negative); URINE LEUKOCYTES-REFLEX NEGATIVE (Negative); URINE NITRITE-REFLEX NEGATIVE (Negative); URINE PROTEIN (DIPSTICK) NEGATIVE (Negative); URINE SPECIFIC GRAVITY 1.015 (1.005-1.035); URINE UROBILINOGEN 0.2 E.U./dl (0.2-1.0)
[2018-09-22 16:41] LABS: CASTS None Seen /LPF (None Seen); SQUAMOUS 0-3 Few /LPF (0-3)
[2018-09-22 16:42] LABS: BACTERIA-REFLEX 1-9 Few /HPF (None Seen); CRYSTALS None Seen /LPF (None Seen); URINE RBC None Seen /HPF (0-2); URINE WBC-REFLEX None Seen /HPF (0-5)
[2018-09-22 16:48] LABS: APTT 26.6 Seconds (24.5-32.8); PROTIME 10.8 Seconds (9.3-11.4)
--- NOTE | 2018-09-22 18:33 | NUR ---
PT ADMITED FROM PARTS EXPEDITER. ADMISSION HX AND ASSESSMENT COMPLETED. VSS. RIGHT GROIN INCISION C/D/I. NO HEMATOMA NOTED. DENIED HAVING PAIN OR DISCOMFORT. WILL CONTINUE TO MONITOR.
--- NOTE | 2018-09-22 22:01 | EKG ---
[address] [address] ELECTROCARDIOGRAM REPORT Name: PURA SIFUENTES Room #: 204-P ADM IN M.R.#: [id number] ������������������ Admission: 09/22/18 ������������������ Attend Phys: Christiano Martin Discharge: ������������������ Date of : 50 Report #: [id number] ����������������������������������������������������������������� [id number] THIS REPORT FOR: //name// [facility] Test Date: 2018-09-22 Test Time: 09:55:44 Pat Name: PURA SIFUENTES Department: Room: 204 Gender: F Bid Analyst: Willam WATTS : 1950 Requested By: Christiano Martin Order Number: [id number] MD: Christiano Martin Measurements Intervals [place] Rate: 46 P: 67 WA: 152 QRS: 57 QRSD: 115 T: 84 QT: 487 QTc: 426 Interpretive Statements Sinus bradycardia Nonspecific intraventricular conduction delay Biphasic T wave in V2 through consider proximal LAD stenosis Compared to ECG 06/06/2018 05:00:44 no significant changes Electronically Signed On 09-22-2018 22:00:53 CDT by Christiano Martin [email or web address] ��������������������������������������������� <ELECTRONICALLY SIGNED> ���������������������������������������� By: Christiano Martin MD ��������������������������������������������� 09/22/18 2200 0955 0955 Christiano Martin MD /EPI
[2018-09-23 00:12] VITALS: BP 123/68
[2018-09-23 04:33] VITALS: BP 138/75
[2018-09-23 07:20] VITALS: BP 130/72
--- NOTE | 2018-09-23 08:23 | NUR ---
ASSUME CARE 1900. PT/VITALS STABLE. DENIES ANY PAIN ADEQUATE REST NOTED. UP AD IRENA. ASSESSMENT CHARTED. PROGRESSING WITH POC. PLAN IS CABG ON TUESDAY. WILL CONTINUE TO MONITOR AND FOLLOW WITH POC
[2018-09-23 11:08] LABS: GLYCOHEMOGLOBIN (HGB A1C) 5.1 % (4.8-5.6)
[2018-09-23 11:25] VITALS: BP 117/67
[2018-09-23 15:30] VITALS: BP 113/62
--- NOTE | 2018-09-23 16:16 | 2DMMODE ---
[facility] [address] [place] [address] 2 D/M-MODE ECHOCARDIOGRAM Name: PURA SIFUENTES ARNULFO Room #: 204-P [facility] IN .#: [id number] ������������� Admission: 09/22/18 ������������� Attend Phys: Christiano Parish Discharge: ��� ������������� ��� Date of : 50 Date of Service: 09/23/18 1616 �� Report #: [id number] �������� ��������������������������������������������[id number] THIS REPORT FOR: //name// APPROVED REPORT Study performed: 09/23/2018 11:23:33 EXAM: Comprehensive 2D, Doppler, and color-flow Echocardiogram Patient Location: In-Patient Room #: 204 Status: routine BSA: 2.00 HR: 49 bpm BP: 130/72 mmHg Other Information Study Quality: Adequate Risk Factors: Cardiac Risk Factors: HTN, Hyperlipidemia Indications Chest Pain 2D Dimensions IVSd: 15.49 (7-11mm) LVOT Diam: 21.88 (18-24mm) LVDd: 30.60 mm PWd: 30.04 (7-11mm) LVDs: 25.60 (25-40mm) Left Atrium: 35.79 (27-40mm) Aortic Root: 29.18 mm Aortic Valve AoV Peak Declan.: 1.35 m/s AO Peak Gr.: 7.69 mmHg LVOT Max P.75 mmHg LVOT Max V: 1.09 m/s POORNIMA Vmax: 3.04 cm2 Mitral Valve E/A Ratio: 1.1 MV Decel. Time: 233.65 ms MV E Max Declan.: 1.07 m/s MV A Declan.: 0.99 m/s MV PHT: 67.76 ms [facility] [address] [place] [address] 2 D/M-MODE ECHOCARDIOGRAM Name: PURA SIFUENTES ARNULFO Room #: 204-P [facility] IN .R.#: [id number] ������������� Admission: 09/22/18 ������������� Attend Phys: Christiano Parish Discharge: ��� ������������� ��� Date of : 50 Date of Service: 09/23/18 1616 �� Report #: [id number] �������� ��������������������������������������������[id number] Pulmonary Valve PV Peak Declan.: 1.00 m/s PV Peak Gr.: 4.00 mmHg Pulmonary Vein P Vein S: 0.58 m/s P Vein A: 0.34 m/s P Vein D: 0.43 m/s P Vein A Dur.: 159.2 msec P Vein S/D Ratio: 1.35 Tricuspid Valve TR Peak Declan.: 2.63 m/s TR Peak Gr.: 27.76 mmHg Left Ventricle The left ventricle is normal size. Mild concentric left ventricular hypertrophy. The left ventricular systolic function is normal. The left ventricular ejection fraction is within the normal range. LVEF is 50-55%. Grade II - pseudonormal filling dynamics. Right Ventricle The right ventricle is normal size. There is normal right ventricular wall thickness. The right ventricular systolic function is normal. Atria The left atrium size is normal. The interatrial septum is intact with no evidence for an atrial septal defect. The right atrium size is normal. Aortic Valve The aortic valve is normal in structure. Trace aortic regurgitation. There is no aortic valvular stenosis. Mitral Valve The mitral valve is normal in structure. Trace mitral regurgitation. No evidence of mitral valve stenosis. There is no evidence of mitral valve prolapse. Tricuspid Valve The tricuspid valve is normal in structure. There is no tricuspid valve stenosis. Trace tricuspid regurgitation. Pulmonic Valve The pulmonary valve is normal in structure. Trace pulmonic regurgitation. Great Vessels [facility] [address] [place] [address] 2 D/M-MODE ECHOCARDIOGRAM Name: PURA SIFUENTES ARNULFO Room #: 204-P ADM IN M.R.#: [id number] ������������� Admission: 09/22/18 ������������� Attend Phys: Christiano Parish Discharge: ��� ������������� ��� Date of : 50 Date of Service: 09/23/18 1616 �� Report #: [id number] �������� ��������������������������������������������[id number] The aortic root is normal in size. IVC is normal in size and collapses >50% with inspiration. Pericardium There is no pericardial effusion. Critical Notification Critical Value: No <Conclusion> The left ventricle is normal size. LVEF is 50-55%. The aortic valve is normal in structure. Trace aortic regurgitation. The mitral valve is normal in structure. Trace mitral regurgitation. The tricuspid valve is normal in structure. Trace tricuspid regurgitation. The pulmonary valve is normal in structure. Trace pulmonic regurgitation. There is no pericardial effusion. ��������������������������������������������� <ELECTRONICALLY SIGNED> ���������������������������������������� By: Christiano Martin MD ��������������������������������������������� 09/23/18 1616 161 161 Christiano Martin MD /INF
--- NOTE | 2018-09-23 17:10 | NUR ---
PATIENT ASSESSMENT CHARTED, VSS, ALERT AND ORIENTED, NO COMPLAINTS OF CHEST PAIN, HEPARIN DRIP INFUSING, NEXT PTT SCHEDULED FOR 1914. PATIENT STATES NO NEEDS, WILL FOLLOW PLAN OF CARE
[2018-09-23 19:45] VITALS: BP 121/72
[2018-09-24 04:00] VITALS: BP 119/71
--- NOTE | 2018-09-24 06:26 | NUR ---
ASSUME CARE 1900. PT/VITALS STABLE. INTERMITTENT CHEST TIGHTNESS NOTED. IMDUR/METOPROLOL SEEMS TO HELP. PATIENT STILL IN HEPARIN DRIP. UP AD IRENA. ADDEQUATE REST NOTED THROUGH THE NIGHT. ASSESSMENT CHARTED. WILL CONTINUE TO MONITOR AND FOLLOW WITH POC
[2018-09-24 07:35] VITALS: BP 132/72
[2018-09-24 11:30] VITALS: BP 127/69
[2018-09-24 16:10] VITALS: BP 124/71
--- NOTE | 2018-09-24 16:30 | NUR ---
ASSESSMENT CHARTED - MEDS PER MAR - NO CO'S OF PAIN OR NAUSEA. PADMINI DIET AND FLUIDS. UP AD IRENA IN ROOM AND AMBULATED IN THE POTTER - NO CO'S OF CHEST PAIN WITH AMBULATION. APPT @ 3288 65.1 - NO CHANGE IN HEPARIN DOSE REQUIRED. PT STATES SHE IS COMFORTABLE AT THE PRESENT TIME - AWAITING OPEN HEART SURGERY. SON INTO VISIT THIS AFTERNOON.
[2018-09-24 19:35] VITALS: BP 132/64
--- NOTE | 2018-09-25 00:04 | NUR ---
PT REQUESTING CPAP MACHINE FOR TONIGHT SPOKE WITH RT AND WAS ASSURED SHE WAS ON THE LIST TO GET ONE TONIGHT, AT 2200 PT CALLED OUT REQUESTING CPAP MACHINE AND RT NOTIFIED AGAIN AND STATED THEY WERE ON THEIR WAY, PT AMBULATING IN POTTER AND STOPPED AT NURSING STATION TO INQUIRE ABOUT CPAP MACHINE AND WHEN SHE WAS UPDATED ON MACHINE AND WE WERE TOLD IT WAS ON ITS WAY SHE STATED SHE DIDN'R WANT IT ANYMORE AND IF THEY BRING IT SHE WILL REFUSE IT, CONTINUOUS DRYOUT OPERATOR HELPER WALKED ONTO FLOOR AND WAS INFORMED OF SITUATION AND TALKED TO PT WHO REQUESTED A NURSING CHANGE AND NO ONE TO COME INTO HER ROOM THE REST OF THE NIGHT, REPORT GIVEN TO RN TO CON'T PPOC.
--- NOTE | 2018-09-25 00:53 | NUR ---
ASSUMED PT CARE AT 2330 FROM THE NURSE FROM THE CHARGE NURSE. PT HAD INITIALLY CALL FOR A CPAP TO BEFORE BEDTIME AT ABOUT 2100. RT HAD BEEN NOTIFIED. PT HAD CALLED AGAIN REQUESTING FOR A CPAP BEFORE BED. RT WAS CALLED AND RT HAD STATED THAT SHE WAS ON HER WAY. PT CAME OUT OF HER ROOM AND WAS WALKING THE HALLWAY AND STOPPED BY THE NURSES STATION AND WAS YELLING AND COMPLAINING THAT SHE HAD REQUESTED FOR A CPAP AND SHE HADN'T GOTTEN IT YET. THE RT LATER CAME TO HER ROOM TO PUT THE BIPAP ON HER AND SHE YELLED AT THE RT TELLING THE RT TO LEAVE HER ROOM. DRUM SANDER NOTIFIED AND DRUM SANDER WENT IN HER ROOM, HAD A TALK WITH PATIENT AND HE HAD REQUESTED FOR A CHANGE IN NURSE, AND SHE TOLD THE DRUM SANDER THAT SHE DIDNT WANT TO BE DISTURB THROUGHOUT THE NIGHT. THE PATIENT WAS LATER SEEN TO BE OUT OFF THE UNIT, AND HER TELEMONITOR BOX BECAME OUT OF RANGE AND THE TECH WENT TO GO LOOK FOR HER, SHE WAS FOUND IN THE [place] AREA, SECURITY AND DRUM SANDER WAS NOTIFIED. SHE WAS LATER FOUND TO BE BACK IN THE UNIT. SHE WAS UPSET AND SHE SEEN YELLING AT THE ENTIRE STAFF STATING " I DONT WANT ANYONE COMING INTO MY ROOM TONIGHT". I HAD SPOKE TO THE HOUSE IF IT WAS OKAY TO GO IN THERE AND THE DRUM SANDER HAD STATED THAT PATIENT DIDNT WANT TO BE BOTHERED FOR THE REST OF THE NIGHT, AND THIS WAS BEFORE SHE HAD LEFT THE UNIT.
[2018-09-25 04:10] VITALS: BP 122/70
--- NOTE | 2018-09-25 05:40 | NUR ---
PT IS SLEEPING, FAMILY AT BEDSIDE, DENIES ANY FURTHER NEEDS AT THIS TIME
[2018-09-25 07:40] VITALS: BP 109/57
--- NOTE | 2018-09-25 09:09 | EKG ---
[address] [address] ELECTROCARDIOGRAM REPORT Name: BEARPURA ANN Room #: 204-P ADM IN M.R.#: [id number] ������������������ Admission: 09/22/18 ������������������ Attend Phys: Christiano Martin Discharge: ������������������ Date of : 50 Report #: [id number] ����������������������������������������������������������������� [id number] THIS REPORT FOR: //name// [facility] Test Date: 2018-09-23 Test Time: 10:48:51 Pat Name: PURA SIFUENTES Department: Room: 204 P Gender: F Software Development Manager: ISHMAEL : 1950 Requested By: Christiano Martin Order Number: [id number] MD: Jah Nicholson Measurements Intervals [place] Rate: 52 P: 67 WA: 140 QRS: 45 QRSD: 115 T: 83 QT: 462 QTc: 430 Interpretive Statements Sinus bradycardia Otherwise normal Compared to ECG 09/22/2018 09:55:44 No significant change was found Electronically Signed On 09-25-2018 9:08:49 CDT by Jah Nicholson [email or web address] ��������������������������������������������� <ELECTRONICALLY SIGNED> ���������������������������������������� By: Jah Nicholson MD, [facility] ��������������������������������������������� 09/25/18 0908 1048 1048 Jah Nicholson MD, [facility] /EPI
[2018-09-25 11:35] VITALS: BP 115/79
[2018-09-25 15:15] VITALS: BP 130/66
--- NOTE | 2018-09-25 15:46 | NUR ---
ASSESSMENTS CHARTED - MEDS PER MAR - HEPARIN CONTINUES ORDERED. PADMINI DIET AND FLUIDS. NO CO'S OF PAIN OR NAUSEA. NO CO'S OF CHEST PAIN WITH AMBULATION. PT HAS BEEN PLEASANT AND CO-OPERATIVE THIS SHIFT- SEEN BY [facility] FOR PRE-OP TEACHING. CONSENT FOR SURGERY AND BLOOD SIGNED. NO CO'S AT THE PRESENT TIME.
[2018-09-25 19:21] VITALS: BP 130/67
--- NOTE | 2018-09-26 03:22 | NUR ---
PATIENTS CARES WERE ASSUMED AT SHIFT CHANGE.PATIENT WAS ASSESSED MEDS WERE PASSED. AT 0310 PATIENT CALLED OUT FOR NITRO DUE TO CHEST PAIN. NO MORPPINE ON HER JUN A FIRST CHOICE. NITRI WAS PULL AND ONE WAS GIVEN SL. B/P CHECKED AND RECORDED BEFORE NITRO AND FIVE MIN AFTER NITRO. HOURLY ROUNDING WAS DONE. PATIENT TOOK HER SHOWER AT 2100 AND WILL SHOWER AGAIN AT APPROX 0530. BED IS IN A LOW AND LOCKED POSITION.
[2018-09-26 04:27] VITALS: BP 127/79
[2018-09-26 12:18] LABS: MCH 29.8 pg (26.0-34.0); MCHC 34.6 g/dL (28.0-37.0); MCV 86.1 fL (80.0-100.0); RBC 2.86 mil/uL (4.20-5.00); RDW 14.3 % (10.5-14.5); WBC 5.7 thou/uL (4.0-11.0)
[2018-09-26 12:20] LABS: HEMATOCRIT 24.6 % (37.0-47.0); HEMOGLOBIN 8.5 gm/dL (12.0-15.0)
[2018-09-26 12:43] LABS: INR 1.4
[2018-09-26 12:44] LABS: FIBRINOGEN 150.3 mg/dL (210-360); PROTIME 14.7 Seconds (9.3-11.4)
[2018-09-26 12:59] LABS: POC BE -1 mmol/L (-2.0 to +3.0); POC CA IONIZED 5.3 mg/dL (4.5-5.3); POC GLUCOSE 127 mg/dL (70-99); POC HCO3 23.7 mmol/L (22.0-26.0); POC HEMOGLOBIN 7.8 g/dL (12.0-15.0); POC POTASSIUM 5.3 mmol/L (3.5-5.1); POC SODIUM 134 mmol/L (136-145); POC pCO2 38.4 mmHg (35.0-45.0); POC pH 7.397 (7.360-7.450)
[2018-09-26 12:59] LABS: POC BE -3 mmol/L (-2.0 to +3.0); POC CA IONIZED 5.1 mg/dL (4.5-5.3); POC GLUCOSE 126 mg/dL (70-99); POC HCO3 21.3 mmol/L (22.0-26.0); POC HEMOGLOBIN 8.2 g/dL (12.0-15.0); POC POTASSIUM 4.6 mmol/L (3.5-5.1); POC SODIUM 138 mmol/L (136-145); POC pH 7.431 (7.360-7.450)
[2018-09-26 13:09] LABS: POC BE -1 mmol/L (-2.0 to +3.0); POC CA IONIZED 4.6 mg/dL (4.5-5.3); POC GLUCOSE 110 mg/dL (70-99); POC HCO3 22.6 mmol/L (22.0-26.0); POC HEMOGLOBIN 11.6 g/dL (12.0-15.0); POC POTASSIUM 4.6 mmol/L (3.5-5.1); POC SODIUM 137 mmol/L (136-145); POC pCO2 32.3 mmHg (35.0-45.0); POC pH 7.452 (7.360-7.450)
[2018-09-26 13:09] LABS: POC BE -5 mmol/L (-2.0 to +3.0); POC CA IONIZED 4.3 mg/dL (4.5-5.3); POC GLUCOSE 101 mg/dL (70-99); POC HCO3 20.9 mmol/L (22.0-26.0); POC HEMOGLOBIN 9.2 g/dL (12.0-15.0); POC POTASSIUM 4.9 mmol/L (3.5-5.1); POC SODIUM 136 mmol/L (136-145); POC pCO2 37.9 mmHg (35.0-45.0)
[2018-09-26 13:09] LABS: POC BE 1 mmol/L (-2.0 to +3.0); POC GLUCOSE 122 mg/dL (70-99); POC HCO3 25.2 mmol/L (22.0-26.0); POC HEMOGLOBIN 12.2 g/dL (12.0-15.0); POC POTASSIUM 4.8 mmol/L (3.5-5.1); POC SODIUM 138 mmol/L (136-145); POC pCO2 39.6 mmHg (35.0-45.0); POC pH 7.413 (7.360-7.450)
[2018-09-26 13:09] LABS: POC BE -5 mmol/L (-2.0 to +3.0); POC CA IONIZED 4.9 mg/dL (4.5-5.3); POC GLUCOSE 134 mg/dL (70-99); POC HCO3 20.2 mmol/L (22.0-26.0); POC HEMOGLOBIN 10.5 g/dL (12.0-15.0); POC POTASSIUM 4.4 mmol/L (3.5-5.1); POC SODIUM 138 mmol/L (136-145); POC pCO2 32.4 mmHg (35.0-45.0); POC pH 7.403 (7.360-7.450)
[2018-09-26 13:09] LABS: POC BE -2 mmol/L (-2.0 to +3.0); POC CA IONIZED 6.5 mg/dL (4.5-5.3); POC GLUCOSE 125 mg/dL (70-99); POC HCO3 22.7 mmol/L (22.0-26.0); POC HEMOGLOBIN 8.8 g/dL (12.0-15.0); POC POTASSIUM 4.5 mmol/L (3.5-5.1); POC SODIUM 135 mmol/L (136-145); POC pCO2 34.8 mmHg (35.0-45.0); POC pH 7.423 (7.360-7.450)
[2018-09-26 13:09] LABS: POC BE -2 mmol/L (-2.0 to +3.0); POC CA IONIZED 4.5 mg/dL (4.5-5.3); POC GLUCOSE 110 mg/dL (70-99); POC HCO3 24.9 mmol/L (22.0-26.0); POC HEMOGLOBIN 8.8 g/dL (12.0-15.0); POC SODIUM 135 mmol/L (136-145); POC pCO2 51.6 mmHg (35.0-45.0); POC pH 7.291 (7.360-7.450)
[2018-09-26 13:40] LABS: HEMATOCRIT 34.1 % (37.0-47.0); HEMOGLOBIN 11.9 gm/dL (12.0-15.0); MCH 30.1 pg (26.0-34.0); MCHC 34.8 g/dL (28.0-37.0); MCV 86.7 fL (80.0-100.0); RBC 3.94 mil/uL (4.20-5.00); RDW 14.7 % (10.5-14.5); WBC 7.6 thou/uL (4.0-11.0)
[2018-09-26 13:47] LABS: CALCIUM 8.9 mg/dL (8.5-10.1); MAGNESIUM 3.4 mg/dL (1.8-2.4); POTASSIUM 4.5 mmol/L (3.5-5.1)
[2018-09-26 13:53] LABS: APTT 28.7 Seconds (24.5-32.8); INR 1.1; PROTIME 11.5 Seconds (9.3-11.4)
[2018-09-26 14:05] LABS: BE(vivo) -7.8 mmol/L (-2 to +3); HCO3 17.3 mmol/L (22.0-26.0); PO2 120.2 mmHg (80.0-100.0); sO2 98.1 % (92.0-98.0)
[2018-09-26 14:06] LABS: pH 7.324 (7.360-7.450)
[2018-09-26 16:54] LABS: BE(vivo) -6.8 mmol/L (-2 to +3); HCO3 19.9 mmol/L (22.0-26.0); PCO2 44.1 mmHg (35.0-45.0); sO2 96.4 % (92.0-98.0)
[2018-09-26 16:55] LABS: pH 7.272 (7.360-7.450)
[2018-09-26 17:44] LABS: BE(vivo) -7.7 mmol/L (-2 to +3); HCO3 18.4 mmol/L (22.0-26.0); PCO2 39.6 mmHg (35.0-45.0); PO2 87.5 mmHg (80.0-100.0); sO2 95.7 % (92.0-98.0)
[2018-09-26 17:45] LABS: pH 7.285 (7.360-7.450)
--- NOTE | 2018-09-26 18:53 | NUR ---
PATIENT ARRIVED FROM THE OR INTO ROOM 244 WITH OR STAFF AT BEDSIDE. PATIENT ARRIVED AT 1320, AMADEO THE PA WAS WAITING FOR PATIENT TO ARRIVE AND DR ECKERT WAS HERE JUST BEHIND THE PATIENT. PATIENT WAS PLACED ON ALL THE MONITORS AND PUT ON THE VENT. PATIENT TOLERATED IT WELL. PATIENT SEDATED ON PROPOFOL ON ARRIVAL. ADEQUATE URINE OUTPUT. PLEASE SEE NURSING ASSESSMENT FOR ASSESSMENT. PATIENT EXTUBATED AT 1707 AND IS TOLERATING IT WELL. PATIENT HAS GOTTEN SOME PAIN MEDICATIONS X 2 THIS SHIFT AND DOES GET RELIEF FROM THAT. PATIENT IS NOW TOLERATING ICE CHIPS. NO FURTHER CONCERNS AT THIS TIME. WILL CONTINUE TO MONITOR AND CARE PER PLAN OF CARE.
[2018-09-27] VITALS (10 sets, daily range): BP systolic 112–133; BP diastolic 59–94
[2018-09-27 05:57] LABS: HEMATOCRIT 37.5 % (37.0-47.0); HEMOGLOBIN 12.5 gm/dL (12.0-15.0); MCHC 33.2 g/dL (28.0-37.0); MCV 87.2 fL (80.0-100.0); RBC 4.3 mil/uL (4.20-5.00); RDW 14.8 % (10.5-14.5)
[2018-09-27 06:13] LABS: CALCIUM 7.9 mg/dL (8.5-10.1); CREATININE 0.9 mg/dL (0.6-1.0); MAGNESIUM 2.3 mg/dL (1.8-2.4); POTASSIUM 3.6 mmol/L (3.5-5.1)
--- NOTE | 2018-09-27 06:48 | NUR ---
Pt progressing well and up to the chair this am without difficulty. VS stable and SpO2 adequate on RA. PRN fentanyl and hydrocodones given for chest "soreness" with desired effects achieved. Chest tube drainage minimal and urine output adequate for shift. Am lab results noted, continue with POC.
--- NOTE | 2018-09-27 08:01 | EKG ---
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: Sierra TREVINO : 1950 Requested By: Joe Mckenzie Order Number: [id number] MD: Jah Nicholson Measurements Intervals [place] Rate: 64 P: 68 ME: 144 QRS: 61 QRSD: 109 T: 57 QT: 450 QTc: 465 Interpretive Statements Sinus rhythm No significant abnormality Compared to ECG 09/23/2018 10:48:51 Sinus bradycardia no longer present Electronically Signed On 09-27-2018 8:01:01 CDT by Jah Nicholson [email or web address] ��������������������������������������������� <ELECTRONICALLY SIGNED> ���������������������������������������� By: Jah Nicholson MD, [facility] ��������������������������������������������� 09/27/18 0801 1444 1444 Jah Nicholson MD, [facility] /EPI
--- NOTE | 2018-09-27 08:06 | EKG ---
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: ISHMAEL : 1950 Requested By: Joe Mckenzie Order Number: [id number] MD: Jah Nicholson Measurements Intervals [place] Rate: 83 P: 62 [place]: 137 QRS: 25 QRSD: 102 T: 94 QT: 413 QTc: 486 Interpretive Statements Sinus rhythm Nonspecific ST and T wave abnormality Inferior infarct, age indeterminate Borderline prolonged QT interval Compared to ECG 09/23/2018 10:48:51 T-wave abnormality now present Sinus bradycardia no longer present Inferior Q waves are more prominent Electronically Signed On 09-27-2018 8:06:00 CDT by Jah Nicholson [email or web address] ��������������������������������������������� <ELECTRONICALLY SIGNED> ���������������������������������������� By: Jah Nicholson MD, [facility] ��������������������������������������������� 09/27/18805 2 2 Jah Nicholson MD, [facility] /EPI
--- NOTE | 2018-09-27 10:01 | NUR ---
Nutrition: POD 1 CABG. Consult for diet instruction received. RD will followup to determine education needs when out of ICU.
--- NOTE | 2018-09-27 10:20 | NUR ---
Pt has been up in bedside chair since beginning of shift and remains in chair. Pt medicated with Hydrocodone per request for pain at chest tube insertion sites and chest. Pt was able to eat small amount of breakfast. Sinus rhythm. Weaning off Cardene and will plan to DC other IV drips as well per Dr Diggs's orders.
--- NOTE | 2018-09-27 10:20 | NUR ---
Met with patient who rec CABG. She is A/Ox4 her son at bedside. 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 She reports her employment aware of her situation and she is filing FMLA. At [place] she will be staying at her sons. All needs on one level at sons home. He has bought her a lift chair. She can elevate her feet or be lifted from chair. Her mother and sister driving from to assist with her needs at [place]. PCP Dr Katy Ann from [facility].
--- NOTE | 2018-09-27 14:00 | NUR ---
Resting back in bed after assistance from OT on the return process. Pt did receive partial pain relief with pain pills given but indicates she will be needing more as soon as she is allowed.
--- NOTE | 2018-09-27 17:02 | O ---
[facility] [place] [address] [place] [address] OPERATIVE REPORT Name: BEARPURA ARNULFO Room #: 244-P ADM IN M.R.#: [id number] Admission: 09/22/18 ������������������ Attend Phys: Christiano Martin Discharge: ������������������ Date of : 50 Report #: [id number] THIS REPORT FOR: //name// CC: Katy Martin DATE OF SERVICE: 09/26/2018 PREOPERATIVE DIAGNOSIS: Coronary artery disease. POSTOPERATIVE DIAGNOSIS: Coronary artery disease. OPERATION: Coronary artery bypass (left internal mammary artery to left anterior descending artery). SURGEON: Shiva Diggs M.D. RIDES ATTENDANT: Ivan Mckenzie. ANESTHESIA: General. INDICATIONS: The patient is a 68-year-old with a high grade proximal left anterior descending stenosis seen for Dr. Martin. The patient has satisfactory ventricular function. Circumflex and right coronaries are satisfactory. FINDINGS AND TECHNIQUE: After general anesthesia was established, exposure was obtained through median sternotomy. Left internal mammary artery was harvested from chest wall. Pericardial well was made. Cannulation sutures were placed. Heparin was given. Aorta was cannulated. Right atrium was cannulated. Cardioplegia needle was positioned in the aortic root. Retrograde cardioplegic catheter was placed in coronary sinus. Cardiopulmonary bypass was established. The aorta was cross clamped. Antegrade and retrograde cardioplegia were given. Ice was poured in the pericardial well. The heart was stopped. During electromechanical arrest, distal anastomosis was performed. An end-to-side anastomosis was made between internal mammary and the left anterior descending artery. The anastomosis was checked using the temperature technique. Warm retrograde cardioplegia was given followed by warm continuous blood. Crossclamp was removed. De-airing maneuvers were performed. We had come off bypass, but I was not happy with the flow in the internal mammary artery. Therefore, we returned the bypass and the patient was given another dose of cardioplegia with the crossclamp on and the anastomosis was redone. This time, we were happier with the results. [facility] [address] [place] [address] OPERATIVE REPORT Name: PURA SIFUENTES [facility] Room #: 244-P [facility] IN .R.#: [id number] Admission: 09/22/18 ������������������ Attend Phys: Christiano Martin Discharge: ������������������ Date of : 50 Report #: [id number] As the patient warmed, nice cardiac activity resumed, chest tubes and pacing wires were placed. When the patient was warmed, she was weaned from cardiopulmonary bypass. Venous cannula was removed. Protamine was given. The aortic cannula was removed. Good Doppler signal was audible in the internal mammary artery. When hemostasis was satisfactory, the chest was closed in the usual fashion. The patient was taken to the Intensive Care Unit in good condition having tolerated the procedure well. All counts reported as correct. ��������������������������������������������� <ELECTRONICALLY SIGNED> ���������������������������������������� By: Shiva Diggs MD ��������������������������������������������� 09/27/18 1702 1629 1638 MD miguel Mejias
--- NOTE | 2018-09-27 19:30 | NUR ---
Remains in recliner chair. Adequate pain control with oral medications. Pt has been working with her IS today. Planning to use CPAP machine tonight. PA catheter was dc'd today and introducer remains in place. Report given to RN assuming care, Aun.
[2018-09-28 03:24] VITALS: BP 135/68
--- NOTE | 2018-09-28 05:26 | NUR ---
No event tonight. Pt is resting well tonight. Using IS independently when she awakes. Pain control is adequated, asking 2 pain pills at that time. She Denies of any GI discomfort. Remaining in NSR. BP and temp are WNL. Lines and tubes are intacts, no s/sx of any complication indicates. Continue progressing toward goals.
[2018-09-28 05:37] LABS: HEMATOCRIT 32.8 % (37.0-47.0); HEMOGLOBIN 11.1 gm/dL (12.0-15.0); MCH 29.8 pg (26.0-34.0); MCHC 33.9 g/dL (28.0-37.0); MCV 87.9 fL (80.0-100.0); RBC 3.73 mil/uL (4.20-5.00); RDW 14.9 % (10.5-14.5); WBC 8.8 thou/uL (4.0-11.0)
[2018-09-28 05:43] LABS: CALCIUM 8.3 mg/dL (8.5-10.1); CREATININE 0.7 mg/dL (0.6-1.0); POTASSIUM 4.3 mmol/L (3.5-5.1)
[2018-09-28 12:39] VITALS: BP 138/67
--- NOTE | 2018-09-28 17:15 | NUR ---
TRANSFERED FROM ICU, ALERT AND ORIENTED X4. SR ON THE MONITOR AND VSS. C/O PAIN FROM MOVING AROUND TO CHEST (INCISION SITE) MEDICATED INDICATED. INCISION SITES INTACT WITH JUNI DRESSING, AND SCOTT UPPER ABD WITH GUAZE AND TAPE. VOIDING W/O ANY DIFFICULTY. PROGRESSING TOWARDS GOALS AND WILL CONTINUE WITH POC.
[2018-09-28 20:05] VITALS: BP 142/81
[2018-09-29 04:35] VITALS: BP 127/61
--- NOTE | 2018-09-29 06:36 | NUR ---
ASSESSMENTS CHARTED. PATIENT IS PROGRESSING WELL AND WORKING HARD TO KEEP MOVING. PATIENT GETTING UP AND DOWN AND WALKING AROUND WITHOUT ASSISTANCE. PATIENT IS USING STERNAL PRECAUTIONS. PT HAD BEEN INCONTINENT AT START OF SHIFT, BUT WAS CONTINENT THE REST OF THE SHIFT. PLAN OF CARE TO CONTINUE STRENGTHENING AND IMPROVING HERE LUNG INSPIRATION.
[2018-09-29 07:35] VITALS: BP 111/59
--- NOTE | 2018-09-29 14:15 | NUR ---
assess for length of stay. S/P cabg 09/26. Tolerating meals, and voiced no dietary questions regarding low fat diet. Hoping to discharge tomorrow. Low nutrition risk
[2018-09-29 16:05] VITALS: BP 131/57
--- NOTE | 2018-09-29 16:09 | NUR ---
Pt progressing s/p cabg with likely dc to home with outpt followup over the weekend. No cm interventions indicated at this time.
--- NOTE | 2018-09-29 17:51 | NUR ---
PT CARE ASSUMED APPROX 0700. PT ALERT AND ORIENTED X4. DENIES SOA. VSS. REPORTS PAIN 4-6/10 TO STERNUM. PAIN MANAGED WITH HYDROCODONE. PT REPORTS PAIN MANAGEMENT POC IS ADEQUATE. PT SHOWERED WITH O/T THIS SHIFT W/O ISSUE. JUNI DSG CHANGED PER MAXINE CHILDS VERBAL INSTRUCTIONS. AMADEO ASSESSED DSG AFTER APPLIED WELL. PT COMPLETED RADIOLOGY STUDIES THIS SHIFT. BS WNL. DISCHARGED FROM P/T. P/T APPROVES INDEPENDENCE WITH ACTIVITIES. FAMILY AND FRIENDS AT BEDSIDE INTERMITTENTLY THIS SHIFT. GOOD APPETITE. COMPLIANT WITH FLUID RESTRICTION. USING I.S. RESP THERAPY NOTIFIED THAT CPAP MAY BE MALFUNCTIONING AND KEPT PT AWAKE ALL NIGHT. PAWAN RT REPORTS THAT SOMEONE ON RT STAFF WILL ASSESS CPAP TONIGHT. NO DISTRESS NOTED.
[2018-09-29 20:15] VITALS: BP 122/58
[2018-09-30 04:45] VITALS: BP 100/71
[2018-09-30 06:04] LABS: HEMATOCRIT 28.3 % (37.0-47.0); HEMOGLOBIN 9.5 gm/dL (12.0-15.0); MCH 29.4 pg (26.0-34.0); MCHC 33.4 g/dL (28.0-37.0); MCV 88.1 fL (80.0-100.0); RBC 3.22 mil/uL (4.20-5.00); RDW 14.6 % (10.5-14.5); WBC 4.2 thou/uL (4.0-11.0)
[2018-09-30 06:14] LABS: CALCIUM 8.8 mg/dL (8.5-10.1); CREATININE 0.8 mg/dL (0.6-1.0); POTASSIUM 4.1 mmol/L (3.5-5.1)
--- NOTE | 2018-09-30 07:22 | NUR ---
ASSESSMENTS CHARTED. CONTINUES TO BE SELF MOTIVATED PATIENT. USES GOOD STERNAL PRECAUTIONS. UP AT IRENA IN ROOM. 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 STILL NEEDING PAIN MEDS TO ALLOW FOR ACTIVITY. PLAN IS TO GO HOME TODAY.
[2018-09-30 07:36] VITALS: BP 112/30; BP 112/60
[2018-09-30 09:45] VITALS: BP 112/60
[2018-09-30 11:00] VITALS: BP 112/60
[2018-09-30 11:54] VITALS: BP 117/78
[2018-09-30 12:32] VITALS: BP 112/60
--- NOTE | 2018-10-02 07:59 | EKG ---
[address] [address] ELECTROCARDIOGRAM REPORT Name: PURA SIFUENTES Room #: 214-P DIS IN M.R.#: [id number] ������������������ Admission: 09/22/18 ������������������ Attend Phys: Christiano Martin Discharge: 09/30/18 ������������������ Date of : 50 Report #: [id number] ����������������������������������������������������������������� [id number] THIS REPORT FOR: //name// [facility] Test Date: 2018-09-30 Test Time: 07:21:35 Pat Name: PURA SIFUENTES Department: Room: 214 P Gender: F Model And Dye Person: Sierra TREVINO : 1950 Requested By: Joe Mckenzie Order Number: [id number] MD: Jah Nicholson Measurements Intervals [place] Rate: 66 P: -7 OR: 140 QRS: 16 QRSD: 106 T: -3 QT: 441 QTc: 463 Interpretive Statements Sinus rhythm Nonspecific ST segment abnormality Compared to ECG 09/27/2018 07:03:43 Criteria for inferior infarct no longer present nonspecific change in the ST and T-wave segments Electronically Signed On 10-02-2018 7:58:56 CDT by Jah Nicholson [email or web address] ��������������������������������������������� <ELECTRONICALLY SIGNED> ���������������������������������������� By: Jah Nicholson MD, [facility] ��������������������������������������������� 10/02/18 0758 0 0 Jah Nicholson MD, [facility] /EPI
--- NOTE | 2018-10-03 12:57 | CATHLAB ---
[facility] [address] [place] [address] INVASIVE PROCEDURE REPORT Name: PURA SIFUENTES Room #: 214-P [facility] IN .R.#: [id number] ������������� Admission: 09/22/18 ������������� Attend Phys: Christiano Parish Discharge: ��� 09/30/18 ������������� ��� Date of : 50 Date of Service: 10/03/18 [facility] �� Report #: [id number] �������� ��������������������������������������������[id number] THIS REPORT FOR: //name// APPROVED REPORT Study performed: 09/22/2018 10:37:13 Patient Details Patient Status: Out-Patient Room #: The patient is a 68 year-old female Event Personnel Christiano Martin Boatbuilder Apprentice Wood, Lynn Engel RN RN, Elizabet Lara Monitor, Aiden Shah RTR Scrub Procedures Performed Art Access - R femoral artery* 41519 Initial Mod Sed Same Phys/QHP Gr5y 801285 Coronary Angiography Only [id number] CORANG FFR [id number] FFR Hemostasis w/ Mynx, supervision of conscious sedation Indication Chest pain, Progressive chest pain individual and had moderate disease recently and no other source of progression Procedure Narrative The patient was brought electively to the Cardiac Catheterization Laboratory and was prepped and draped in a sterile manner. The Right Groin^ was infiltrated with 1% Lidocaine subcutaneous anesthesia. A PINNACLE 6FR Sheath #[id number] sheath was inserted into the RFA^. Coronary angiography was performed using coronary diagnostic catheters. The right coronary system was accessed and visualized with a JR 4 catheter. The left coronary system was accessed and visualized with a Guide catheter. Pre-demployment femoral angiogram was performed . Closure device was deployed with a 6 Fr Mynx. The patient tolerated the procedure well and there were no complications associated with the procedure. There was no hematoma. Intraoperative Conscious Sedation Sedation start time: 11:16 Case end Time: 11:53 Versed 2 mg Fluoro Time: 3.40 minutes Dose: DAP 3387.00 cGycm2 423 mGy [facility] [address] [place] [address] INVASIVE PROCEDURE REPORT Name: PURA SIFUENTES Room #: 214-P [facility] IN M.R.#: [id number] ������������� Admission: 09/22/18 ������������� Attend Phys: Christiano Parish Discharge: ��� 09/30/18 ������������� ��� Date of : 50 Date of Service: 10/03/18 1257 �� Report #: [id number] �������� ��������������������������������������������[id number] Contrast Type and Amount: Omnipaque 70 ml Coronary Angiography The patient's coronary anatomy is right dominant. Diagnostic Cath Left Main Normal origin moderate caliber bifurcates left anterior descending left circumflex. Free of high-grade disease. Short course. LAD Monitor large-caliber vessel which were a 50% lesion was identified 3 months ago now has a lesion appears more eccentric and 75% at least. Beyond this the vessel continues in the anterior interventricular sulcus rise to diagonal branches all of which are free of high-grade disease Circumflex Large-caliber vessel of normal origin proceeds give rise to a small first marginal branch and a second marginal branch which is small but not slightly larger than terminates as a bifurcating marginal branch was a lateral aspect of the heart. The continuation of the circumflex proper goes in the AV groove posteriorly is a small twiglike vessel OM1 Small-caliber vessel free of high-grade disease OM2 Large-caliber vessel bifurcating as stated above with only luminal irregularities Right Coronary Large-caliber is low normal origin courses in the AV groove giving rise to small RV and RA normal branches. Encounter in use of the crux of the heart where it gives rise to a moderate to large caliber posterior descending artery free of high-grade disease. The distal circulation consists of a small terminal branch with evidence of R PDA Moderate to large caliber vessel coursing towards the apex free of high-grade disease Left Ventriculography Left Ventriculography was not performed. IVUS Fractional Flow Duncan was performed on the proximal left anterior descending artery segment vessel. A 6 Martiniquais JL4 Guide Catheter was used to engage the left coronary ostium. A neuro 0.014 FFR Interventional Guidewire was used. IVUS Findings Following center protocol the fractional flow reserve results across the proximal LAD lesion was 0.[address] [address] INVASIVE PROCEDURE REPORT Name: PURA SIFUENTES Room #: 214-P [facility] IN M.R.#: [id number] ������������� Admission: 09/22/18 ������������� Attend Phys: Christiano Parish Discharge: ��� 09/30/18 ������������� ��� Date of : 50 Date of Service: 10/03/18 1257 �� Report #: [id number] �������� ��������������������������������������������[id number] Hemodynamics The aortic pressure is 130/65 mmHg with a mean of 101 mmHg. Pre FFR measurement: 0.87 PCI Technique Lesion The lesion stenosis prior to intervention was proximal left anterior descending artery segment% with BERTA 6 Martiniquais JL4 flow. A left coronary Guide Catheter was used to engage the neuro 0.014 FFR ostium. BALLOON DILATION A Balloon catheter Following center protocol the fractional flow reserve results across the proximal LAD lesion was 0.87 was inserted and inflated up to dick for seconds. Conclusion 1. Coronary disease significant single-vessel involving the proximal left anterior descending artery 2. Abnormal hemodynamics with elevated left ventricular end-diastolic pressure 3. Abnormal fractional flow reserve across the left anterior descending artery with a value of 0.87 ( no adenosine technique) Recommendations Aggressive Medical Therapy CABG ��������������������������������������������� <ELECTRONICALLY SIGNED> ���������������������������������������� By: Christiano Martin MD ��������������������������������������������� 10/03/18 1257 1257 1257 Christiano Martin MD /INF
== END 2018-09-30 14:22 | disposition home or self-care (01) | DRG 233 ==
LOC: CATH 09:08 → 2N 13:45 → TBA 09-26 07:19 → ICU 09-26 13:37 → 2N 09-28 15:37
PROVIDERS: Physician Assistant; Surgery Vascular Surgery; ADMIT Internal Medicine
PROC: 4A033BC Measurement of Arterial Pressure, Coronary, Percutaneous Approach (ICD-10-PCS; principal; 2018-09-22)
PROC: 4A023N7 Measurement of Cardiac Sampling and Pressure, Left Heart, Percutaneous Approach (ICD-10-PCS; principal; 2018-09-22)
PROC: B2111ZZ Fluoroscopy of Multiple Coronary Arteries using Low Osmolar Contrast (ICD-10-PCS; principal; 2018-09-22)
PROC: 5A1221Z Performance of Cardiac Output, Continuous (ICD-10-PCS; 2018-09-26)
PROC: 02100Z9 Bypass Coronary Artery, One Artery from Left Internal Mammary, Open Approach (ICD-10-PCS; 2018-09-26)
DX: I25.110 Atherosclerotic heart disease of native coronary artery with unstable angina pectoris (principal); E43 Unspecified severe protein-calorie malnutrition; I47.1 Supraventricular tachycardia; I10 Essential (primary) hypertension; E03.9 Hypothyroidism, unspecified; I48.2 Chronic atrial fibrillation; E78.5 Hyperlipidemia, unspecified; D64.9 Anemia, unspecified; Z87.891 Personal history of nicotine dependence; Z82.49 Family history of ischemic heart disease and other diseases of the circulatory system; Z90.710 Acquired absence of both cervix and uterus
CPT/HCPCS: 10078; 10081; 47000; 47001; 47002; 47297; 48888; 50409; 50456; 50498; 51301; 52131; 52259; 52314; 53327; 54118; 55415; 56455; 56524; 56525; 56526; 56527; 56528; 56531; 56534; 56668; 56760; 57093; 57116; 57167; 62110; 62950; 65003; 65020; 65040; 65047; 65120; 65135; 83006

== ENCOUNTER 2019-04-26 05:49 | Day surgery (SDC) | payer OTHER ==
[~2019-04-26] VITALS: Ht 172.7 cm; Wt 81.6 kg
--- NOTE | ~2019-04-26 | O ---
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 PROCEDURE: Left upper lid functional blepharoplasty. SURGEON: Andrew Patel M.D. INTERNAL AUDIT MANAGER: None. ANESTHESIA: MAC. COMPLICATIONS: None. 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 Automated parametric testing showed dense superior visual field loss on the left side. Retesting with elevation of the left upper lid skin into a normal anatomic location demonstrates more than 30% and in excess of 12 degree improvement. She presents today for a left upper lid functional blepharoplasty. OPERATION PERFORMED: Unilateral left upper lid functional blepharoplasty. ANESTHESIA: Local with IV sedation. COMPLICATIONS: None. Informed consent was obtained to include but not limited to the loss of vision, bleeding, infection, scarring, failure to improve the problem and need for further surgery. DESCRIPTION OF OPERATION: The patient was taken to the operating room, where 2% Xylocaine with epinephrine mixed with equal parts of 0.75% Marcaine with Wydase [facility] [address] [place] [address] OPERATIVE REPORT Name: PURA SIFUENTES ARNULFO Room #: 150-1 [facility] M.R.#: [id number] Admission: 04/26/19 Attend Phys: Andrew Patel MD Discharge: Date of : 50 Report #: [id number] was administered transcutaneously to each upper lid. The patient was then prepped and draped in the usual sterile fashion and a skin-marking pen was then utilized to outline an upper lid crease that was symmetrical on each side. Graefe forceps were then used to quantitate the redundant upper lid skin and it was similarly outlined. The incisions were then made with Bharathi scissors and a skin-muscle flap removed from each side with high-temp cautery. Hemostasis was achieved with the monopolar cautery as it was throughout the case. The orbital septum was then entered and the central and medial fat pads were identified. The redundant fat was teased free, clamped with a Divya clamp and removed with high-temp cautery. The upper lid crease was then reformed with multiple interrupted 6-0 chromic sutures. The skin was then closed with a running 6-0 plain gut suture. The wound was then cleaned and dressed with ophthalmic antibiotic ointment and a nonstick dressing. The patient was transported to the recovery area, where cold compresses were applied, having tolerated the procedure well with no anesthetic or operative complications being noted. By: 0739 [id number] Andrew Patel MD /nt
[~2019-04-26 05:49] MED LIST changes: +ASPIR 8181 MG PO; +LIPITOR40 MG PO; +LOSARTAN POTAS100 MG PO; +METOPROLOL SUCC50 MG PO; +NITROGLYCERIN0.4 MG SUBLING
[2019-04-26 06:30] VITALS: BP 107/80
== END 2019-04-26 08:12 | disposition home or self-care (01) ==
LOC: OR 05:49 → TBA 05:50 → OR 08:12
DX: H02.834 Dermatochalasis of left upper eyelid (principal); H53.462 Homonymous bilateral field defects, left side; I10 Essential (primary) hypertension; I25.10 Atherosclerotic heart disease of native coronary artery without angina pectoris; E78.5 Hyperlipidemia, unspecified; F32.9 Major depressive disorder, single episode, unspecified; G47.30 Sleep apnea, unspecified; I48.91 Unspecified atrial fibrillation; Z98.890 Other specified postprocedural states; Z85.828 Personal history of other malignant neoplasm of skin; Z87.891 Personal history of nicotine dependence; Z90.710 Acquired absence of both cervix and uterus; Z79.899 Other long term (current) drug therapy; Z79.01 Long term (current) use of anticoagulants; Z79.82 Long term (current) use of aspirin
CPT/HCPCS: 50010; 50101; 50386; 50398; 51636; 56531; 62110; 62850; 70005